=== PATIENT | male | born 1945 | race Caucasian/White ===

== ENCOUNTER 2022-07-23 09:40 | Day surgery (SDC) | payer MEDICARE, BC ==
[2022-07-22 12:31] LABS: BASOPHILS % (AUTO) 0.5 % (0-1); EOSINOPHILS # (AUTO) 0.2 X10'3 (0-0.9); EOSINOPHILS % (AUTO) 3.1 % (0-6); HEMATOCRIT 35.6 % (42.0-52.0); HEMOGLOBIN 11.5 g/dl (14.0-17.9); LYMPHOCYTES # (AUTO) 1.9 X10'3 (1.1-4.8); LYMPHOCYTES % (AUTO) 27.4 % (21-51); MEAN CORPUSCULAR HGB CONC 32.3 g/dL (33.0-36.5); MEAN CORPUSCULAR VOLUME 89.8 FL (78-98); MEAN PLATELET VOLUME 8.1 FL (7.4-10.4); MONOCYTES # (AUTO) 0.6 X10'3 (0-0.9); NEUTROPHILS # (AUTO) 4.3 X10'3 (1.8-7.7); PLATELET COUNT 191 X10'3 (140-440); RED BLOOD COUNT 3.97 X10'6 (4.70-6.10); RED CELL DISTRIBUTION WIDTH 14.6 % (11.5-14.5)
[2022-07-22 12:32] LABS: ALBUMIN 3.6 G/DL (3.4-5.0); ANION GAP 4 (8-16); BLOOD UREA NITROGEN 19 MG/DL (7-18); BUN/CREATININE RATIO 20.9 (10.0-20.0); CHLORIDE 104 MMOL/L (99-107); CREATININE 0.91 MG/DL (0.60-1.10); GLUCOSE 190 MG/DL (70-104); POTASSIUM 4.6 MMOL/L (3.5-5.1); SODIUM 140 MMOL/L (135-145); TOTAL CARBON DIOXIDE 31.6 MMOL/L (24-32); eGFR 81 ML/MIN
[2022-07-22 12:34] LABS: APTT 27 SECONDS (22-32)
[2022-07-23] VITALS (12 sets, daily range): BP systolic 128–167; BP diastolic 68–94
[~2022-07-23] VITALS: Ht 180.3 cm; Wt 74.0 kg
[~2022-07-23 09:40] MED LIST: ASPI81TA53 PO; ATOR20TA66 PO; FLO0.4C PO; LINA5TAB4 PO; LISI2.5T14 PO; METO-395 PO; TICA90TA PO
[2022-07-23] MEDS ORDERED: normal saline 1,000 ML IV SCH (09:55)
[2022-07-23] MEDS ORDERED: diphenhydrAMINE 25mg capsule PO PRN (09:55)
[2022-07-23] MEDS ORDERED: LORazepam 0.5 MG tablet PO PRN (09:55)
[2022-07-23] MEDS ORDERED: PROZ10C PO (10:11)
[2022-07-23] MEDS ORDERED: EMPA25TA PO (10:11)
[2022-07-23] MEDS ORDERED: nitroGLYCERIN-Tridil 50MG/D5W 250 ML IV ONE (10:18)
[2022-07-23] MEDS ORDERED: heparin 25,000 UNIT/250ml bag 250 ML IV ONE (10:19)
[2022-07-23] MEDS ORDERED: fentaNYL/PF 50MCG/1 ML 2ML syringe ONE (10:19)
[2022-07-23] MEDS ORDERED: midazolam 1 mg/ML 2ml injection ONE (10:19)
[2022-07-23] MEDS ORDERED: heparin 1,000unit/ml 10ml vial 10 ML ONE (10:19)
[2022-07-23] MEDS ORDERED: LIDOcaine 1% (10mg/ml) 2ml vial ONE (10:19)
[2022-07-23] MEDS ORDERED: iohexol 350MG/ML 100ml bottle IV ONE ×2 (10:19→11:38)
[2022-07-23] MEDS ORDERED: verapamil 2.5 mg/ml inj IV ONE (10:19)
[2022-07-23] MEDS ORDERED: heparin 1,000 UNITS/NS 500ml 500 ML ONE ×2 (10:20)
[2022-07-23] MEDS ORDERED: ASPI-1265 PO (10:23)
[2022-07-23] MEDS ORDERED: METO-395 PO (10:23)
[2022-07-23] MEDS ORDERED: ATOR40TA PO (10:23)
[2022-07-23] MEDS ORDERED: TICA90TA2 PO (10:23)
[2022-07-23] MEDS ORDERED: ticagrelor 90mg tablet ONE (11:54)
[2022-07-24] MEDS ORDERED: ticagrelor 90mg tablet PO SCH (08:00)
== END 2022-07-23 18:50 | disposition home or self-care (01) ==
LOC: SSTAY O 09:40
PROVIDERS: ATTEND Internal Medicine Cardiovascular Disease
DX: I25.110 Atherosclerotic heart disease of native coronary artery with unstable angina pectoris (principal); I10 Essential (primary) hypertension; E78.5 Hyperlipidemia, unspecified; E11.9 Type 2 diabetes mellitus without complications; I25.2 Old myocardial infarction; N40.0 Benign prostatic hyperplasia without lower urinary tract symptoms; F32.A Depression, unspecified; F17.210 Nicotine dependence, cigarettes, uncomplicated; Z95.5 Presence of coronary angioplasty implant and graft; Z79.899 Other long term (current) drug therapy; Z79.82 Long term (current) use of aspirin; Z98.890 Other specified postprocedural states; Z79.01 Long term (current) use of anticoagulants; Z82.3 Family history of stroke; Z83.3 Family history of diabetes mellitus
CPT/HCPCS: 36415; 76937; 80048; 82948; 85025; 85347; 85610; 85730; 93005; 93458; 99152; 99153; C1725; C1751; C1769; C1874; C9600; J1644; J2250; J3010; J3490; J7030; Q9967; A6258; A6402; C1894